=== PATIENT | male | born 1990 | race Hispanic/Latino ===

== ENCOUNTER 2018-03-21 14:07 | Outpatient (CLI) | payer BC ==
--- NOTE | 2018-03-21 15:02 | ULT ---
LIMITED SOFT TISSUE ULTRASOUND: Date: 03-21-18 Provided Clinical History: Synovial cyst of left popliteal fossa. FINDINGS: Limited sonographic interrogation is performed of the left popliteal region in the region of patient' s pain. The sonographic appearance of the soft tissues in this region is normal. There is no evidence for Dawkins's cyst. IMPRESSION: No sonographic abnormality is evident in the region of patient pain. POS: [facility]
== END 2018-03-21 14:08 | disposition home or self-care (01) ==
LOC: BICULT 14:07
PROVIDERS: ATTEND Internal Medicine
DX: M71.22 Synovial cyst of popliteal space [Baker], left knee (principal)
CPT/HCPCS: 76999